=== PATIENT | female | born 1995 | race Caucasian/White ===

== ENCOUNTER 2016-09-20 20:46 | Outpatient (CLI) | payer OTHER ==
[~2016-09-20] VITALS: Ht 167.6 cm; Wt 99.8 kg
[~2016-09-20 20:46] MED LIST: IBUPROFEN600 MG PO
== END 2016-09-20 23:29 | disposition home or self-care (01) ==
LOC: GENOP 20:46
DX: O46.92 Antepartum hemorrhage, unspecified, second trimester (principal); Z3A.21 21 weeks gestation of pregnancy
CPT/HCPCS: 81001; G0463

== ENCOUNTER 2016-10-05 18:31 | Emergency (ER) | payer OTHER ==
[2016-10-05 19:54] LABS: HEMOGLOBIN 10.5 gm/dl (12.3-15.3); RED BLOOD COUNT 3.53 M/UL (4.00-5.10); WHITE BLOOD COUNT 6.7 K/UL (4.5-11.0)
[2016-10-05 20:09] LABS: BUN/CREATININE RATIO 22 (0-10)
== END 2016-10-06 00:10 | disposition home or self-care (01) ==
LOC: ER1 18:31
PROVIDERS: Emergency Medicine
DX: O23.42 Unspecified infection of urinary tract in pregnancy, second trimester (principal); O99.89 Other specified diseases and conditions complicating pregnancy, childbirth and the puerperium; R19.7 Diarrhea, unspecified; R10.819 Abdominal tenderness, unspecified site; O21.9 Vomiting of pregnancy, unspecified; Z88.0 Allergy status to penicillin; Z3A.24 24 weeks gestation of pregnancy
CPT/HCPCS: 36415; 80053; 81001; 83690; 85025; 87086; 96365; 96375; 99284; J0696; J2405; J7050

== ENCOUNTER 2016-10-06 00:57 | Outpatient (CLI) | payer OTHER | END 2016-10-06 02:44 | disposition home or self-care (01) | LOC: GENOP 00:57 | DX: O99.89 Other specified diseases and conditions complicating pregnancy, childbirth and the puerperium (principal); R11.0 Nausea; R11.10 Vomiting, unspecified; R10.9 Unspecified abdominal pain; Z3A.21 21 weeks gestation of pregnancy | CPT/HCPCS: G0463 ==

== ENCOUNTER → 2020-12-27 | Outpatient (CLI) | payer OTHER ==
[~2020-12-27] MED LIST changes: +ATROVENT HFA12.9 GM INH; +BENTYL 20MG TAB20 MG PO; +COLACE 100MG C100 MG PO; +FERROUS SULFAT325 M2 PO; +HUMULIN N100 UNIT/1 SC; +HUMULIN R100 UNIT/1 SC; +LORTAB 5-325 M1 EACH PO; +MUCINEX600 MG PO; +PREDNISONE20 MG PO; +PROAIR HFA8.5 GM INH; +PROTONIX40 MG PO; +PROVENTIL HFA6.7 GM INH; +SPRINTEC 28 DA1 EACH PO; +VIBRAMYCIN100 MG PO; +ZOFRAN ODT 4 MG4 MG PO; +ZOFRAN4 MG PO
[2020-12-27 13:01] LABS: HEMOGLOBIN 12.2 gm/dl (12.3-15.3); RED BLOOD COUNT 4.37 M/UL (4.00-5.10); WHITE BLOOD COUNT 5.8 K/UL (4.5-11.0)
[2020-12-27 13:24] LABS: BUN/CREATININE RATIO 24 (0-10)
== END ==
LOC: LAB 11:49
PROVIDERS: Nurse Practitioner Family
DX: R51.9 Headache, unspecified (principal)
CPT/HCPCS: 36415; 80053; 80061; 82607; 84439; 84443; 85025

== ENCOUNTER 2021-02-24 11:18 | Emergency (ER) | payer OTHER ==
[~2021-02-24] VITALS: Ht 165.1 cm; Wt 111.1 kg
[2021-02-24 13:17] LABS: HEMOGLOBIN 11.7 gm/dl (12.3-15.3); RED BLOOD COUNT 4.14 M/UL (4.00-5.10); WHITE BLOOD COUNT 3.1 K/UL (4.5-11.0)
[2021-02-24 13:41] LABS: BUN/CREATININE RATIO 15 (0-10)
== END 2021-02-24 16:35 | disposition home or self-care (01) ==
LOC: ER1 11:18
PROVIDERS: Physician Assistant
DX: Z23 Encounter for immunization (principal); O98.512 Other viral diseases complicating pregnancy, second trimester; U07.1 COVID-19; Z3A.10 10 weeks gestation of pregnancy; Z88.0 Allergy status to penicillin
CPT/HCPCS: 71045; 80053; 85025; 99285; M0243

== ENCOUNTER → 2021-08-16 | Outpatient (CLI) | payer OTHER | LOC: RAD 14:45 | DX: O99.519 Diseases of the respiratory system complicating pregnancy, unspecified trimester (principal); Z3A.35 35 weeks gestation of pregnancy | CPT/HCPCS: 71046 ==

== ENCOUNTER 2021-08-30 05:46 | Inpatient (IN) | payer OTHER ==
[~2021-08-30] VITALS: Ht 167.6 cm; Wt 115.7 kg
[2021-08-30 06:23] LABS: HEMOGLOBIN 9.6 gm/dl (12.3-15.3); RED BLOOD COUNT 3.49 M/UL (4.00-5.10); WHITE BLOOD COUNT 6.3 K/UL (4.5-11.0)
[2021-08-30] MEDS ORDERED: LANTUS100 UNIT/1 SC (06:25)
[2021-08-30] MEDS ORDERED: PRENATABS FA T1 EACH PO (06:26)
[2021-08-30] MEDS ORDERED: NOVOLOG 10100 UNITS1 SC (06:27)
[2021-08-30 06:46] LABS: BUN/CREATININE RATIO 11 (0-10)
[2021-08-30] MEDS ORDERED: HYDROCODON-ACE1 EAC6 PO (07:47)
[2021-08-30] MEDS ORDERED: COLACE 100MG C100 MG PO (07:47)
[2021-08-30] MEDS ORDERED: IBUPROFEN600 MG PO (07:47)
[2021-09-02] MEDS ORDERED: METFORMIN HCL500 MG PO (12:52)
== END 2021-09-02 12:50 | disposition home or self-care (01) | DRG 788 ==
LOC: OB 05:46
PROVIDERS: ADMIT Obstetrics & Gynecology
PROC: 10D00Z1 Extraction of Products of Conception, Low, Open Approach (ICD-10-PCS; 2021-08-30)
PROC: 3E0234Z Introduction of Serum, Toxoid and Vaccine into Muscle, Percutaneous Approach (ICD-10-PCS; principal; 2021-08-30 07:30)
DX: O34.211 Maternal care for low transverse scar from previous cesarean delivery (principal); O99.344 Other mental disorders complicating childbirth; F41.9 Anxiety disorder, unspecified; O13.4 Gestational [pregnancy-induced] hypertension without significant proteinuria, complicating childbirth; Z20.822 Contact with and (suspected) exposure to COVID-19; Z3A.37 37 weeks gestation of pregnancy; Z37.0 Single live birth; Z88.0 Allergy status to penicillin; O24.419 Gestational diabetes mellitus in pregnancy, unspecified control; R21 Rash and other nonspecific skin eruption; Z82.49 Family history of ischemic heart disease and other diseases of the circulatory system; Z83.3 Family history of diabetes mellitus; Z80.0 Family history of malignant neoplasm of digestive organs; Z79.84 Long term (current) use of oral hypoglycemic drugs; Z23 Encounter for immunization
CPT/HCPCS: 36415; 80053; 81001; 82800; 82962; 85014; 85018; 85025; 86850; 86900; 86901; 86920; 90715; C9113; J1170; J1200; J1580; J2250; J2370; J2405; J2590; J2704; J7030; J7120; Q0177

== ENCOUNTER 2021-10-20 19:43 | Emergency (ER) | payer OTHER ==
[~2021-10-20 19:43] MED LIST changes: +HYDROCODON-ACE1 EAC6 PO; +LANTUS100 UNIT/1 SC; +METFORMIN HCL500 MG PO; +NOVOLOG 10100 UNITS1 SC; +PRENATABS FA T1 EACH PO
[2021-10-20 23:41] LABS: HEMOGLOBIN 12.6 gm/dl (12.3-15.3); RED BLOOD COUNT 4.61 M/UL (4.00-5.10); WHITE BLOOD COUNT 10.6 K/UL (4.5-11.0)
[2021-10-20 23:48] LABS: BUN/CREATININE RATIO 29 (0-10)
[2021-10-21] MEDS ORDERED: PEPCID40 MG PO (01:16)
[2021-10-21] MEDS ORDERED: MEDROL DOSEPAK 24 MG PO (01:16)
[2021-10-21] MEDS ORDERED: BENADRYL 25MG C25 MG PO (01:16)
== END 2021-10-21 01:28 | disposition home or self-care (01) ==
LOC: ER1 19:43
PROVIDERS: Physician Assistant Medical
DX: L29.9 Pruritus, unspecified (principal); T36.8X5A Adverse effect of other systemic antibiotics, initial encounter; Z88.1 Allergy status to other antibiotic agents; Z88.0 Allergy status to penicillin
CPT/HCPCS: 80053; 83605; 85025; 87040; 96372; 99283; J2930